=== PATIENT | male | born 1965 | race African-American/Black ===

== ENCOUNTER 2016-05-01 14:39 | Outpatient (CLI) | payer OTHER ==
--- NOTE | 2016-05-01 15:07 | Diagnostic Imaging Report ---
[facility] [address] [facility].[address] [id number] Report Submission Date: May 01, 2016 3:01:47 PM WALLPAPER INSPECTOR Patient Study Name: GURMEET ROSS Date: May 01, 2016 2:49:19 PM WALLPAPER INSPECTOR Modality Type: CR Gender: M Description: CHEST : 65 Institution: [facility] Physician: DANIELLE TOBIAS MD 2 views the chest Clinical history: positive tb chest Findings: The heart size and pulmonary vasculature are normal. No pleural effusion, pneumothorax or alveolar consolidation. No cavitary lesion identified. Mild right infrahilar fullness felt to be due to technique. Impression: Negative Electronically signed on May 01, 2016 3:01:47 PM WALLPAPER INSPECTOR by: Alexandre TORRES
== END 2016-05-01 14:40 ==
LOC: RAD 14:39
PROVIDERS: ATTEND Family Medicine
DX: Z11.1 Encounter for screening for respiratory tuberculosis (principal)
CPT/HCPCS: 71020